=== PATIENT | female | born 1990 | race Two or more races ===

== ENCOUNTER 2024-07-22 23:48 | Inpatient (IN) | payer OTHER, MEDICAID ==
[~2024-07-22] VITALS: Ht 154.9 cm; Wt 78.9 kg
[2024-07-23 00:28] LABS: BASOPHILS % (AUTO) 0.4 % (0.0-2.0); EOSINOPHILS % (AUTO) 1.5 % (1.0-6.0); HEMATOCRIT 41.3 % (36-46); HEMOGLOBIN 13.9 g/dL (12.0-16.0); LYMPHOCYTES % (AUTO) 29.5 % (22.0-44.0); MEAN CORPUSCULAR HEMOGLOBIN 28.9 pg (26.0-34.0); MEAN CORPUSCULAR HGB CONC 33.7 G/dL (31.0-37.0); MEAN CORPUSCULAR VOLUME 86 fL (80-100); MONOCYTES # (AUTO) 0.3 K/uL (0.1-1.0); MONOCYTES % (AUTO) 4.8 % (2.0-9.0); NEUTROPHILS # (AUTO) 4.2 K/uL (1.8-7.7); NEUTROPHILS % (AUTO) 63.8 % (40.0-70.0); PLATELET COUNT (AUTO) 238 K/uL (150-450); RED BLOOD CELL COUNT(AUTO) 4.81 MIL/uL (4.00-5.20); RED CELL DISTRIBUTION WIDTH 13.7 % (11.5-14.5); WHITE BLOOD COUNT (AUTO) 6.6 K/uL (4.5-11.0)
[2024-07-23] MEDS ORDERED: ESCI20TA87 PO (00:31)
[2024-07-23] MEDS ORDERED: GABA-1181 PO (00:31)
[2024-07-23] MEDS ORDERED: NALT50TA33 PO (00:32)
[2024-07-23] MEDS ORDERED: HYDR-3831 PO (00:32)
[2024-07-23 00:41] LABS: ANION GAP 5 mmol/L (8-16); CALCIUM, TOTAL 9.5 mg/dL (8.8-10.5); CARBON DIOXIDE 30 mmol/L (22-29); CHLORIDE 105 mmol/L (98-107); CREATININE 0.62 mg/dL (0.60-1.30); GLOMERULAR FILTR. RATE CALC > 60 mL/min (>60); GLUCOSE,RANDOM 99 mg/dL (70-110); POTASSIUM 3.9 mmol/L (3.5-5.1); SODIUM SERUM 140 mmol/L (136-145); UREA NITROGEN, BLOOD 14 mg/dL (7-18)
[2024-07-23 00:44] LABS: COVID AG,FIA SOURCE NASAL SWAB
[2024-07-23 01:03] LABS: SARS-COV2 (COVID) ANTIGEN,FIA Negative (Negative)
[2024-07-23 01:11] LABS: PH,URINE DRUG SCREEN 5.5 (5.0-8.0)
[2024-07-23 01:17] LABS: ALCOHOL, URINE DRUG SCREEN NEGATIVE (NEGATIVE); AMPHET/METH SCREEN,URINE NEGATIVE (NEGATIVE); BARBITURATE SCREEN, URINE NEGATIVE (NEGATIVE); BENZODIAZEPINES SCREEN,URINE NEGATIVE (NEGATIVE); CANNABINOID SCREEN,URINE NEGATIVE (NEGATIVE); COCAINE SCREEN,URINE NEGATIVE (NEGATIVE); METHADONE SCREEN, URINE NEGATIVE (NEGATIVE); OPIATE SCREEN,URINE POSITIVE (NEGATIVE); PHENCYCLIDINE SCREEN,URINE NEGATIVE (NEGATIVE)
[2024-07-23] MEDS: BACITRACIN 0.9 GM PACKET OINTMENT TP ONE (01:29)
[2024-07-23] MEDS: PERTUSS(ACELL),DIPH,TET/PF 0.5 ML SYRINGE [ADULT] IM. ONE (01:30)
[2024-07-23] MEDS: LORazepam 2 MG TABLET PO PRN (01:31)
[2024-07-23] MEDS: ZOLPIDEM TARTRATE 10 MG TABLET PO PRN (01:31)
[2024-07-23 10:40] VITALS: O2SAT 100
[2024-07-23 12:40] VITALS: BP 131/75; PULSE 69; RESP 18; TEMP 97.3; O2SAT 97
[2024-07-23] MEDS ORDERED: ACETAMINOPHEN 325 MG TABLET PO PRN (20:00)
[2024-07-23] MEDS ORDERED: LOPERAMIDE HCL 2 MG CAPSULE PO PRN (20:00)
[2024-07-23] MEDS ORDERED: MAG HYDROX/ALUMINUM HYD/SIMETH ES 30 ML SUSPENSION UDCUP PO PRN (20:00)
[2024-07-23] MEDS ORDERED: BENZOCAINE/MENTHOL [CEPACOL] LOZENGE PO PRN (20:00)
[2024-07-23] MEDS ORDERED: OMEPRAZOLE 20 MG CAPSULE PO PRN (20:00)
[2024-07-23] MEDS ORDERED: PETROLATUM,WHITE 28 GM JELLY TP PRN (20:00)
[2024-07-23] MEDS ORDERED: ALBUTEROL SULFATE HFA 90 MCG/PUFF 8 GM INHALER IH PRN (20:00)
[2024-07-23] MEDS ORDERED: CloNIDine HCL 0.1 MG TABLET PO PRN (20:00)
[2024-07-23] MEDS ORDERED: ONDANSETRON 4 MG TABLET PO PRN (20:00)
[2024-07-23] MEDS ORDERED: BACITRACIN 28 GM OINTMENT TP PRN (20:00)
[2024-07-23 20:50] VITALS: BP 128/73; PULSE 70; RESP 18; TEMP 97.5; O2SAT 99
[2024-07-23] MEDS: MAGNESIUM HYDROXIDE SUSPENSION 30 ML UDCUP PO PRN (21:19)
[2024-07-23] MEDS: haloperidoL 5 MG TABLET PO PRN (21:19)
[2024-07-24 08:52] VITALS: BP 102/60; PULSE 88; RESP 18; TEMP 98.1; O2SAT 97
[2024-07-24 09:19] LABS: HEMOGLOBIN A1C 5.2 % (3.8-5.6)
[2024-07-24] MEDS: MULTIVITAMINS WITH IRON TABLET PO SCH (11:57)
[2024-07-24] MEDS: NALTREXONE HCL 50 MG TABLET PO SCH (11:58)
[2024-07-24] MEDS: ESCITALOPRAM OXALATE 20 MG TABLET PO SCH (12:02)
[2024-07-24] MEDS: GABAPENTIN 100 MG CAPSULE PO SCH (16:07)
[2024-07-24] MEDS: DOCUSATE SODIUM 100 MG CAPSULE PO PRN (16:39)
[2024-07-24 20:25] VITALS: BP 106/68; PULSE 81; RESP 16; TEMP 97.7; O2SAT 97
[2024-07-25 10:06] VITALS: BP 103/65; PULSE 98; RESP 16; TEMP 97.9; O2SAT 98
[2024-07-25] MEDS ORDERED: GABA-1216 PO (10:09)
== END 2024-07-25 16:21 | disposition home or self-care (01) | DRG 885 ==
LOC: EMS 23:49 → B2S 07-23 12:08
PROVIDERS: ADMIT Psychiatry & Neurology Child & Adolescent Psychiatry; ATTEND Psychiatry & Neurology Child & Adolescent Psychiatry
PROC: GZ56ZZZ Individual Psychotherapy, Supportive (ICD-10-PCS; principal; 2024-07-24)
PROC: GZ52ZZZ Individual Psychotherapy, Cognitive (ICD-10-PCS; 2024-07-25)
DX: F33.2 Major depressive disorder, recurrent severe without psychotic features (principal); R45.851 Suicidal ideations; E78.5 Hyperlipidemia, unspecified; R73.9 Hyperglycemia, unspecified; F10.10 Alcohol abuse, uncomplicated; F43.10 Post-traumatic stress disorder, unspecified; F41.9 Anxiety disorder, unspecified; F60.3 Borderline personality disorder; K21.9 Gastro-esophageal reflux disease without esophagitis; Z20.822 Contact with and (suspected) exposure to COVID-19; G47.00 Insomnia, unspecified; S51.812A Laceration without foreign body of left forearm, initial encounter; F17.210 Nicotine dependence, cigarettes, uncomplicated; X58.XXXA Exposure to other specified factors, initial encounter; Y93.89 Activity, other specified; Y92.89 Other specified places as the place of occurrence of the external cause; Y99.8 Other external cause status; Z88.6 Allergy status to analgesic agent; Z79.899 Other long term (current) drug therapy
CPT/HCPCS: 80048; 80061; 80307; 83036; 84703; 85025; 90471; 90715; 99285; G0480